=== PATIENT | male | born 1980 | race Caucasian/White ===

== ENCOUNTER 2019-04-17 11:02 | Outpatient (CLI) | payer BC ==
[2019-04-17] MEDS ORDERED: Iopamidol 370 76% 100 ML VIAL ONE (11:06)
--- NOTE | 2019-04-17 13:50 | CT ---
CT abdomen and pelvis: 04/17/2019 COMPARISON: None HISTORY: Generalized abdominal pain TECHNIQUE: Axial CT imaging at 5 mm intervals from lung bases through pubic symphysis with IV and ora l contrast. Coronal and sagittal reformatted imaging obtained. FINDINGS: The visualized lung bases are unremarkable. No free intraperitoneal air or fluid. The hepatic parenchyma is diffusely hypodense, evidence of steatosis. The liver, gallbladder, spleen, pancreas, adrenal glands, and kidneys demonstrate no acute findings. No evidence for bowel inflammatory change or obstruction. The appendix is unremarkable. The vascular structures of the abdomen and pelvis appear patent. No lymphadenopathy is evident within the abdomen/pelvis. Review of the osseous structures demonstrate no acute findings. IMPRESSION: No acute findings. Incidental findings as detailed above.
== END 2019-04-17 11:03 | disposition home or self-care (01) ==
LOC: CT 11:02
PROVIDERS: ATTEND Internal Medicine
DX: R10.9 Unspecified abdominal pain (principal); K76.0 Fatty (change of) liver, not elsewhere classified
CPT/HCPCS: 36415; 74177; 80053; 80061; 82977; 83036; 83516; 83690; 84443; 85025; Q9967

== ENCOUNTER 2019-07-14 13:51 | Outpatient (CLI) | payer BC ==
--- NOTE | 2019-07-14 14:08 | RAD ---
XR Hip Rt 2-3 View HISTORY: Right hip pain FINDINGS: No fracture or dislocation is identified.
--- NOTE | 2019-07-14 14:09 | RAD ---
XR Lumbar Spine 2 Or 3 View HISTORY: Sciatica the right side, back pain FINDINGS: No fracture or subluxation is identified. Mild degenerative changes are present
== END 2019-07-14 13:52 | disposition home or self-care (01) ==
LOC: BICRAD 13:51
PROVIDERS: ATTEND Internal Medicine
DX: M54.31 Sciatica, right side (principal); M25.551 Pain in right hip; M47.816 Spondylosis without myelopathy or radiculopathy, lumbar region
CPT/HCPCS: 72100

== ENCOUNTER 2019-09-10 17:59 | Emergency (ER) | payer BC ==
[2019-09-10] MEDS ORDERED: Ondansetron PF 4 MG/2 ML Vial ONE (18:39)
[2019-09-10] MEDS ORDERED: Adacel (T-DAP) 0.5 ML SYRINGE ONE (19:16)
[2019-09-10 20:24] LABS: #Basophils 0.1 thou/uL (0.0-0.2); #Eosinphils 0.2 thou/uL (0.0-0.7); #Lymphocytes 2.5 thou/uL (1.20-3.40); #Monocytes 0.6 thou/uL (0.11-0.59); #Neutrophils 3.9 thou/uL (1.40-6.50); %Basophils 0.8 % (0.0-1.0); %Lymphocytes 34.1 % (21.0-51.0); %Monocytes 8.9 % (0.0-10.0); %Neutrophils 53.2 % (42.0-75.0); Hemoglobin 15.5 g/dL (14.0-18.0); Mean Corpuscular HGB CONC 36.3 g/dL (32.0-36.0); Mean Corpuscular Hemoglobin 32.6 pg (27.0-31.0); Mean Corpuscular Volume 89.9 fL (78.0-98.0); Platelet Count 142 thou/uL (130-400); RBC Distribution Width 10.8 % (11.5-14.5); Red Blood Cell (RBC) Count 4.75 mill/uL (4.70-6.10); White Blood Cell (WBC) Count 7.2 thou/uL (4.8-10.8)
[2019-09-10 20:28] LABS: INR-International Normal Ratio 0.9; PTT 28.1 SEC (22.9-36.1); Prothrombin Time 12.2 SEC (12.0-14.7)
[2019-09-10 20:42] LABS: ALT (SGPT) 36 U/L (8-55); AST (SGOT) 21 U/L (5-34); Albumin 4.3 g/dL (3.5-5.0); Alkaline Phosphatase 65 U/L (40-110); Anion Gap 10 mmol/L (10-20); BUN (Urea Nitrogen) 14 mg/dL (8.9-20.6); Bilirubin, Total 0.4 mg/dL (0.2-1.2); Calc. Creatinine Clearance 0 mL/min (70-130); Calcium 9.4 mg/dL (7.8-10.44); Carbon Dioxide 28 mmol/L (22-29); Chloride 106 mmol/L (98-107); Estimated GFR-MDRD Greater than 90; Globulin 2.4 g/dL (2.4-3.5); Glucose 90 mg/dL (70-105); Potassium 4.1 mmol/L (3.5-5.1); Protein, Total 6.7 g/dL (6.0-8.3); Sodium 140 mmol/L (136-145)
== END 2019-09-10 21:28 | disposition home or self-care (01) ==
LOC: ERS 17:59
DX: T63.061A Toxic effect of venom of other North and South American snake, accidental (unintentional), initial encounter (principal); M79.645 Pain in left finger(s); Z23 Encounter for immunization
CPT/HCPCS: 80053; 85025; 85610; 85730; 90471; 90715; 96360; 96361; J2405

== ENCOUNTER 2021-05-12 13:18 | Outpatient (CLI) | payer BC | END 2021-05-12 13:19 | disposition home or self-care (01) | LOC: TBSIIMAG 13:18 | PROVIDERS: ATTEND Family Medicine | DX: M51.16 Intervertebral disc disorders with radiculopathy, lumbar region (principal); M47.26 Other spondylosis with radiculopathy, lumbar region | CPT/HCPCS: 72148 ==

== ENCOUNTER 2021-08-04 11:52 | Outpatient (CLI) | payer BC | END 2021-08-04 11:53 | disposition home or self-care (01) | LOC: TBSIIMAG 11:52 | PROVIDERS: ATTEND Family Medicine | DX: M47.26 Other spondylosis with radiculopathy, lumbar region (principal) | CPT/HCPCS: 72148 ==

== ENCOUNTER 2021-10-09 15:22 | Outpatient (CLI) | payer BC | END 2021-10-09 15:23 | disposition home or self-care (01) | LOC: DTY/OP 15:22 | PROVIDERS: ATTEND Internal Medicine | DX: E66.01 Morbid (severe) obesity due to excess calories (principal); Z68.41 Body mass index [BMI] 40.0-44.9, adult | CPT/HCPCS: 97802 ==

== ENCOUNTER 2021-11-13 10:15 | Outpatient (CLI) | payer BC ==
[2021-11-13 11:11] LABS: #Eosinphils 0.2 10x3/uL (0.0-0.5); #Monocytes 0.7 10x3/uL (0.0-1.1); #Neutrophils 2.7 10x3/uL (1.5-8.4); %Basophils 0.7 % (0.0-2.0); %Eosinophils 2.9 % (0.0-6.0); %Lymphocytes 35.2 % (18.0-47.0); %Monocytes 11.8 % (0.0-10.0); %Neutrophils 48.7 % (40.0-75.0); Hemoglobin 15.8 g/dL (13.5-17.5); Mean Corpuscular HGB CONC 34.5 g/dL (32.0-36.0); Mean Corpuscular Hemoglobin 30.7 pg (27.0-33.0); Mean Corpuscular Volume 88.9 fl (81.2-95.1); Mean Platelet Volume 11.3 fl (7.4-10.4); Platelet Count 180 10x3/uL (150-450); RBC Distribution Width 11.8 % (11.5-14.5); Red Blood Cell (RBC) Count 5.15 10x6/uL (4.32-5.72); White Blood Cell (WBC) Count 5.6 10x3/uL (3.5-10.5)
[2021-11-13 11:12] LABS: ALT (SGPT) 72 U/L (8-55); AST (SGOT) 46 U/L (5-34); Albumin 4.8 g/dL (3.5-5.0); Alkaline Phosphatase 82 U/L (40-110); Anion Gap 14 mmol/L (10-20); BUN (Urea Nitrogen) 13 mg/dL (8.9-20.6); Bilirubin, Total 0.5 mg/dL (0.2-1.2); Calc. Creatinine Clearance 0 mL/min (70-130); Carbon Dioxide 27 mmol/L (22-29); Chloride 103 mmol/L (98-107); Globulin 2.4 g/dL (2.4-3.5); Glucose 102 mg/dL (70-105); Potassium 4.2 mmol/L (3.5-5.1); Protein, Total 7.2 g/dL (6.0-8.3); Sodium 140 mmol/L (136-145)
[2021-11-13 14:27] LABS: Hemoglobin A1c 5.6 % (4.0-6.0)
== END 2021-11-13 10:16 | disposition home or self-care (01) ==
LOC: LABBT 10:15
PROVIDERS: ATTEND Surgery
DX: Z01.818 Encounter for other preprocedural examination (principal); E66.01 Morbid (severe) obesity due to excess calories; Z20.822 Contact with and (suspected) exposure to COVID-19
CPT/HCPCS: 71046; 80053; 83036; 85025; 93005; 93010; U0003; U0005